=== PATIENT | male | born 1965 | race Caucasian/White ===

== ENCOUNTER 2020-05-09 17:49 | Emergency (ER) | payer BC, SELFPAY ==
[~2020-05-09] VITALS: Ht 170.2 cm; Wt 95.3 kg
[2020-05-09 17:49] VITALS: BP_SYST 137
--- NOTE | 2020-05-09 17:49 | NUR ---
Placed in room 4. Placed on cardiac cath lab technologist, blood pressure machine and pulse oximeter. To gown for exam. Side rails up. Report given to ED [place].
--- NOTE | 2020-05-09 17:52 | NUR ---
Patient brought in [facility] [address] from home for syncopal episode at home sitting on couch. Patient states that he was eating honey and was taking vital signs he began to have a coughing fit and passed out. Denies any KO. Denies any pain. No other complaints. O2 saturation at 96% RA. Covid positive on 05/07/20. No other complaints.
--- NOTE | 2020-05-09 18:01 | NUR ---
ER at bedside examining patient.
[2020-05-09] MEDS ORDERED: DILTIAZEM HCL 25 MG/5 ML VIAL IVP ONE (18:30)
[2020-05-09 18:51] LABS: HEMOGLOBIN 15.9 g/dL (14.0-18.0)
[2020-05-09 19:00] LABS: BASOPHILS % (AUTO) 0.7 % (0.0-2.0); EOSINOPHILS # (AUTO) 0.1 K/uL (0.0-0.4); EOSINOPHILS % (AUTO) 2.1 % (0.0-4.0); HEMATOCRIT 46.2 % (36-54); LYMPHOCYTES # (AUTO) 1.1 K/uL (1.0-5.5); LYMPHOCYTES % (AUTO) 20.2 % (20.5-51.5); MEAN CORPUSCULAR HEMOGLOBIN 33 pg (27-31); MEAN CORPUSCULAR HGB CONC 35 % (32-36); MEAN CORPUSCULAR VOLUME 94 fL (79.0-98.0); MONOCYTES # (AUTO) 1.2 K/uL (0.0-1.0); MONOCYTES % (AUTO) 22.6 % (1.7-9.3); NEUTROPHILS # (AUTO) 2.9 K/uL (1.8-7.7); NEUTROPHILS % (AUTO) 54.4 % (40.0-70.0); PLATELET COUNT (AUTO) 204 K/uL (130-430); RED BLOOD CELL COUNT(AUTO) 4.89 MIL/uL (4.2-6.2); RED CELL DISTRIBUTION WIDTH 13.6 % (9.0-15.0); WHITE BLOOD COUNT (AUTO) 5.3 K/uL (4.8-10.8)
--- NOTE | 2020-05-09 19:05 | NUR ---
Patient's called reporting patient o2 saturations have been in the low 80s when sleeping. MD notified. Will await remainder of lab results. Patient is saturating at 95% RA currently. Speaking full sentences. No other complaints.
--- NOTE | 2020-05-09 19:11 | NUR ---
received report from [facility] [place] for continuation of care.
--- NOTE | 2020-05-09 19:15 | NUR ---
pt alert and oriented, sitting up comfortably in bed watching television, reports he is feeling fatigued. pt denies shortness fo breath or chest pain. hubert continue to monitor.
[2020-05-09 19:17] LABS: CALCIUM 8.9 mg/dL (8.4-11.0); CREATININE 1.03 mg/dL (0.55-1.30); POTASSIUM 4.1 mmol/L (3.5-5.1)
[2020-05-09 19:24] LABS: ALBUMIN 3.7 g/dL (3.4-4.8); TOTAL BILIRUBIN 0.3 mg/dL (0.0-1.0)
[2020-05-09 19:25] LABS: C-REACTIVE PROTEIN QUANT 0.7 mg/dL (0-0.5)
[2020-05-09 19:29] LABS: BILIRUBIN,URINE NEGATIVE (NEGATIVE); BLOOD, URINE 1+ (NEGATIVE); CLARITY/URINE CLEAR (CLEAR); COLOR,URINE YELLOW (YELLOW); GLUCOSE,URINE NEGATIVE (NEGATIVE); KETONES,URINE NEGATIVE (NEGATIVE); LEUKOCYTE ESTERASE ,URINE NEGATIVE (NEGATIVE); NITRITE, URINE NEGATIVE (NEGATIVE); PROTEIN URINE TRACE (NEGATIVE); UROBILINOGEN,URINE 0.2 (0.2-1.0)
--- NOTE | 2020-05-09 19:49 | NUR ---
CRITICAL LAB REPORTING - COVID POSITIVE.
[2020-05-09 19:55] LABS: BACTERIA,URINE FEW /HPF (None Seen); WBC,URINE 0-3 /HPF (0-3)
--- NOTE | 2020-05-09 20:16 | NUR ---
lab at bedside for blood draw.
[2020-05-09] MEDS ORDERED: IOHEXOL 350 mgI/mL, 150 ML INFUS..BTL IV ONE (21:34)
--- NOTE | 2020-05-09 21:34 | NUR ---
CONSENT FORM SIGNED BY PATIENT FOR CTA CHEST W/ CONTRAST & PLACED IN CHART.
--- NOTE | 2020-05-09 21:38 | NUR ---
Patient transported to radiology via WHEELCHAIR, accompanied by TECH.
--- NOTE | 2020-05-09 21:59 | NUR ---
PATIENT RETURNED FROM RADIOLOGY IN STABLE CONDITION. Addendum: 05/09/20 at 2159 by ANTWON NO ADVERSE REACTION TO CONTRAST.
--- NOTE | 2020-05-09 22:52 | NUR ---
DR. GONZALEZ AT BEDSIDE SPEAKING WITH PATIENT.
[2020-05-09 23:15] VITALS: BP_SYST 136
== END 2020-05-09 23:15 | disposition home or self-care (01) ==
LOC: SED 17:49
DX: U07.1 COVID-19 (principal); R55 Syncope and collapse; J84.10 Pulmonary fibrosis, unspecified
CPT/HCPCS: 36415; 36600; 70450; 71045; 71275; 76376; 80053; 81000; 82550; 82728; 82803; 83605; 83615; 83880; 84484; 85025; 85379; 85384; 85610; 85730; 86140; 86886; 86900; 86901; 87040; 87086; 87426; 93005; 99285; Q9967

== ENCOUNTER 2021-05-03 20:31 | Emergency (ER) | payer BC, SELFPAY ==
[~2021-05-03] VITALS: Ht 170.2 cm; Wt 90.7 kg
[2021-05-03 20:35] VITALS: BP_SYST 168
--- NOTE | 2021-05-03 21:07 | NUR ---
ROSANA Benavides at [facility] to examining patient.
[2021-05-03] MEDS ORDERED: predniSONE 20 MG TABLET ONE (21:58)
[2021-05-03] MEDS ORDERED: predniSONE 20 MG TABLET PO ONE (22:00)
--- NOTE | 2021-05-03 22:04 | NUR ---
Received patient to ER w/ c/o swelling to left side of tongue after eating "[employer] pizza and a jalapeno chile w/ cheese w/ noted spices" Patient able to speak in full sentences, no difficulty swallowing. Introduced self to patient, positioned for comfort. continue to monitor. Patient resting quietly. No acute distress noted. Vital signs within normal range. patient medicated as ordered w/ 60mg of steriods. will observe for any adverse reaction.
[2021-05-03] MEDS ORDERED: EPIN0.3P3 IM (22:24)
[2021-05-03] MEDS ORDERED: PRED20TA PO (22:24)
[2021-05-03] MEDS ORDERED: DIPH25CA83 PO (22:24)
[2021-05-03 22:43] VITALS: BP_SYST 135
--- NOTE | 2021-05-03 22:43 | NUR ---
Patient given written and verbal discharge instructions and verbalizes understanding. ER MD discussed with patient the results and treatment provided. Patient in stable condition. ID arm band removed. Rx of benadryl, prednisone, epinephrine pen given. Patient educated on pain management and to follow up with PMD. Pain Scale 0. Opportunity for questions provided and answered. Medication side effect fact sheet provided.
== END 2021-05-03 22:43 | disposition home or self-care (01) ==
LOC: SED 20:31
DX: T78.1XXA Other adverse food reactions, not elsewhere classified, initial encounter (principal); X58.XXXA Exposure to other specified factors, initial encounter
CPT/HCPCS: 99283; J7512